=== PATIENT | female | born 1955 | race Two or more races ===

== ENCOUNTER 2024-06-06 15:36 | Inpatient (IN) | payer BC, OTHER ==
[~2024-06-06] VITALS: Ht 154.9 cm; Wt 74.6 kg
[2024-06-06] MEDS: SODIUM CHLORIDE 0.9% 500 ML IVB ONE (15:45)
--- NOTE | 2024-06-06 15:48 | ED.PDOC ---
Altered Mental Status HPI Comments 68 y.o female with medical history of anemia, blood transfusions, and HTN, presents to the ED via EMS for an evaluation of a syncopal episode today at home. Patient reports ambulating to her restroom, was unable to make it and lost consciousness. Construction workers outside her home heard a thump and found patient unconscious in a sitting position by the toilet. EMS reports on arrival, patient was pale, clammy and cold but vital signs were stable with a blood glucose of 117. In route, patient's blood pressure dropped suddenly to 77 systolic and presents to the ED with a repeat pressure of 78/48. Patient also mentions the past 2 days she has had hematemesis and dark stools. She denies any chest pain, SOB, fever, chills. Patient has a history of ETOH abuse but is sober now. Time Seen by MD: 15:36 Reviewed Notes: Nurses Notes, Civil Engineering Intern Notes, Medications, Allergies Allergies: Coded Allergies: NO KNOWN ALLERGIES (Unverified , 06/06/24) Information Source: Patient, Emergency Med Personnel Mode of Arrival: EMS Severity: Moderate Timing: Hours Quality: None Recent: Nausea, Vomiting History of: None Associated Signs and Symptoms: Other Past Medical History PAST MEDICAL HISTORY: Anemia, HTN Past Medical History (Other): Blood transfusion Surgical History: Denies all surgeries CAREER DEVELOPMENT ENGINEER History: Denies all CAREER DEVELOPMENT ENGINEER Hx Family History Family History: Family hx of heart arnulfo Social History Smoker: Non-Smoker Alcohol: Sober Drugs: Denies Drug Use Lives In: Home Constitutional: denies: chills, diaphoresis, fatigue, fever, malaise, sweats, weakness, others EENTM: denies: blurred vision, double vision, ear bleeding, ear discharge, ear drainage, ear pain, ear ringing, eye pain, eye redness, hearing loss, mouth pain, mouth swelling, nasal discharge, nose bleeding, nose congestion, nose pain, photophobia, tearing, throat pain, throat swelling, voice changes, others Respiratory: denies: cough, hemoptysis, orthopnea, SOB at rest, shortness of breath, SOB with excertion, stridor, wheezing, others Cardiovascular: reports: syncope; denies: chest pain, dizzy spells, diaphoresis, Dyspnea on exertion, edema, irregular heart beat, left arm pain, lightheadedness, palpitations, PND, others Gastrointestinal: reports: hematemesis, nausea; denies: abdomen distended, abdominal pain, blood streaked bowels, constipated, diarrhea, dysphagia, difficulty swallowing, melena, poor appetite, poor fluid intake, rectal bleeding, rectal pain, vomiting, others Genitourinary: denies: abnormal vagina bleeding, burning, dyspareunia, dysuria, flank pain, frequency, hematuria, incontinence, pain, , vagina discharge, urgency, others Neurological: denies: dizziness, fainting, headache, left sided numbness, left sided weakness, numbness, paresthesia, pre-existing deficit, right sided numbness, right sided weakness, seizure, speech problems, tingling, tremors, weakness, others Musculoskeletal: denies: back pain, gout, joint pain, joint swelling, muscle pain, muscle stiffness, neck pain, others Integumetry: reports: change in color (pale ); denies: bruises, change in hair/nails, dryness, laceration, lesions, lumps, rash, wounds, others Allergic/Immunocompromised: denies: Difficulty Healing, Frequent Infections, Hives, Itching, others Hematologic/Lymphatic: denies: anemia, blood clots, easy bleeding, easy bruising, swollen glands, others Endocrine: denies: excessive hunger, excessive sweating, excessive thirst, excessive urination, flushing, intolerance to cold, intolerance to heat, unexplained weight gain, unexplained weight loss, others Psychiatric: denies: anxiety, bipolar disorder, depression, hopeless, panic disorder, schizophrenia, sleepless, suicidal, others All Other Systems: Reviewed and Negative Physical Exam General Appearance: Moderate Distress HEENT: Normal ENT Inspection, Pharynx Normal, TMs Normal Neck: Full Range of Motion, Non-Tender, Normal, Normal Inspection Respiratory: Chest Non-Tender, Lungs Clear, No Accessory Muscle Use, No Respiratory Distress, Normal Breath Sounds Cardiovascular: No Edema, No JVD, No Murmur, No Gallop, Tachycardia Breast Exam: Deferred Gastrointestinal: No Organomegaly, Non Tender, No Pulsatile Mass, Normal Bowel Sounds, Soft Genitalia: Deferred Pelvic: Deferred Rectal: Deferred Extremities: No calf tenderness, Normal capillary refill, Normal inspection, Normal range of motion, Non-tender, No pedal edema Musculoskeletal : Apperance: Normal Neurologic: Alert, 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 Was a procedure done?: No Differential Diagnosis (ALOC) Differential Diagnosis: Dehydration, Hypoxemia, Closed Head Injury, ETOH Intoxication, Other (anemia) X-Ray, Labs, Meds, VS Vital Signs Date Time Temp Pulse Resp B/P (MAP) Pulse Ox O2 Delivery O2 Flow Rate FiO2 06/06/24 18:58 97.5 99 12 97.5 06/06/24 18:58 97.5 99 12 97.5 06/06/24 17:59 97.8 93 18 80/46 (57) 96 97.8 06/06/24 17:50 100 06/06/24 16:28 97.5 99 20 82/36 (51) 96 97.5 06/06/24 16:01 99 22 80/43 (55) 98 06/06/24 15:59 Nasal Cannula* 4 36 06/06/24 15:56 97.7 100 22 71/42 (52) 92 06/06/24 15:48 102 06/06/24 15:36 102 Lab Test 06/06/24 16:15 06/06/24 15:59 Range/Units Prothrombin Time 16.1 H 9.3-11.8 sec Prothrombin Time INR 1.59 H 0.9-1.15 Activated Partial Thromboplast Time 29.9 24.5-34.5 SEC White Blood Count 12.7 H 4.4-10.8 10^3/uL Red Blood Count 1.77 L 4.0-5.20 10^6/uL Hemoglobin 6.2 *L 12.2-16.2 g/dL Hematocrit 18.8 L 36.0-46.0 % Mean Corpuscular Volume 105.9 H 80.0-100.0 fL Mean Corpuscular Hemoglobin 34.7 H 28.0-32.0 pg Mean Corpuscular Hemoglobin Concent 32.8 32.0-36.0 g/dL Red Cell Distribution Width 13.3 11.8-14.3 % Platelet Count 145 140-450 10^3/uL Mean Platelet Volume 9.3 6.9-10.8 fL Neutrophils (%) (Auto) 70.2 37.0-80.0 % Lymphocytes (%) (Auto) 19.6 10.0-50.0 % Monocytes (%) (Auto) 10.0 0.0-12.0 % Eosinophils (%) (Auto) 0.0 0.0-7.0 % Basophils (%) (Auto) 0.2 0.0-2.0 % Neutrophils # (Auto) 8.9 H 1.6-8.6 10 ^3/uL Lymphocytes # (Auto) 2.5 0.4-5.4 10 ^3/uL Monocytes # (Auto) 1.3 0-1.3 10 ^3/uL Eosinophils # (Auto) 0 0-0.8 10 ^3/uL Basophils # (Auto) 0 0-0.2 10 ^3/uL Nucleated Red Blood Cells 0.3 % Sodium Level 135 L 136-145 mmol/L Potassium Level 3.4 L 3.5-5.1 mmol/L Chloride Level 98 98-107 mmol/L Carbon Dioxide Level 22 20-31 mmol/L Anion Gap 15 5-15 Blood Urea Nitrogen 62 H 9-23 mg/dL Creatinine 1.69 H 0.550-1.02 mg/dL Glomerular Filtration Rate Calc 32 >90 mL/min BUN/Creatinine Ratio 36.7 H 10.0-20.0 Serum Glucose 100 74-106 mg/dL Calcium Level 9.8 8.7-10.4 mg/dL Total Bilirubin 1.2 H 0.2-1.0 mg/dL Aspartate Amino Transferase (AST) 97 H 13-40 U/L Alanine Aminotransferase (ALT) 46 H 7-40 U/L Alkaline Phosphatase 46 46-116 U/L Total Protein 5.4 L 5.7-8.2 g/dL Albumin 3.1 L 3.2-4.8 g/dL Current Medications Medications (Trade) Dose Ordered Sig/Jose Route Start Time Stop Time Status Last Admin Sodium Chloride 500 ml @ 500 mls/hr Q1H ONCE IVB 06/06/24 15:45 06/06/24 16:44 DC 06/06/24 15:45 Pantoprazole Sodium (Protonix) 40 mg ONCE ONCE IV 06/06/24 16:00 06/06/24 16:01 DC 06/06/24 17:12 IV Hep-Lock was established The patient was bolused with normal saline at a 500 cc bolus We immediately contacted the resort housekeeper. We spoke with Dr. Flower who is aware of the patient. The patient was being given Protonix 40 mg IV push The patient remains hypotensive and with a history of bleeding, we did order emergency blood to be given at this time The patient was still also typed and screened We will continue to monitor the patient for the hypotension as well as the GI bleed We are going to give the patient thiamine IV piggyback At this time, the patient was being admitted Images Reviewed?: Images reviewed and evaluated by me Time of 1ST Reevaluation: 15:42 Reevaluation 1ST: Unchanged Patient Education/Counseling: Diagnosis, Treatment, Prognosis Family Education/Counseling: No Family Present Departure 1 Departure Time of Disposition: 18:48 Impression: Primary Impression: Upper GI bleed Additional Impressions: Blood loss anemia Hypotension Qualified Codes: I95.9 - Hypotension, unspecified Alcohol abuse Disposition: ADMITTED INPATIENT Admit to: ICU Condition: Guarded Critical Care Note Critical Care Time?: Yes (45 min-critical care time only) Stability Stability form required: Yes Unstable for transfer: ICU, CCU, PCU, MIKHAIL (Intensive VS monitoring), ED Physician Assesment (Clinical assesment) I personally scribed for MAYA YANEZ MD ([email or web address]) on 06/06/24 at 15:47. Electronically submitted by Lubna Davenport ([facility]). I personally scribed for MAYA YANEZ MD ([email or web address]) on 06/06/24 at 15:48. Electronically submitted by Lubna Davenport ([facility]). MAYA YANEZ MD Jun 06, 2024 15:47
[2024-06-06 16:20] LABS: Basophils # (auto) 0 10 ^3/uL (0-0.2); Basophils % (auto) 0.2 % (0.0-2.0); Eosinophils # (auto) 0 10 ^3/uL (0-0.8); Lymphocytes # (auto) 2.5 10 ^3/uL (0.4-5.4)
[2024-06-06 16:23] LABS: Hematocrit 18.8 % (36.0-46.0); Lymphocytes % (auto) 19.6 % (10.0-50.0); Mean Corpuscular Hemoglobin 34.7 pg (28.0-32.0); Mean Corpuscular Hgb Conc. 32.8 g/dL (32.0-36.0); Mean Corpuscular Volume 105.9 fL (80.0-100.0); Monocytes # (auto) 1.3 10 ^3/uL (0-1.3); Neutrophils # (auto) 8.9 10 ^3/uL (1.6-8.6); Neutrophils % (auto) 70.2 % (37.0-80.0); Nucleated Red Blood Cells % 0.3 %; Platelet Count (auto) 145 10^3/uL (140-450); Red Blood Cells 1.77 10^6/uL (4.0-5.20); Red Cell Distribution Width 13.3 % (11.8-14.3); White Blood Cell 12.7 10^3/uL (4.4-10.8)
[2024-06-06 16:36] LABS: Hemoglobin 6.2 g/dL (12.2-16.2)
[2024-06-06 16:39] LABS: Alkaline Phosphatase 46 U/L (46-116); Anion Gap 15 (5-15); BUN/Creatinine Ratio 36.7 (10.0-20.0); Bilirubin, Total 1.2 mg/dL (0.2-1.0); Calcium 9.8 mg/dL (8.7-10.4); Carbon Dioxide 22 mmol/L (20-31); Chloride 98 mmol/L (98-107); Glucose 100 mg/dL (74-106)
[2024-06-06 16:42] LABS: Alanine Aminotransferase 46 U/L (7-40); Albumin 3.1 g/dL (3.2-4.8); Aspartate Aminotransferase 97 U/L (13-40); Blood Urea Nitrogen 62 mg/dL (9-23); Potassium 3.4 mmol/L (3.5-5.1); Sodium 135 mmol/L (136-145); Total Protein 5.4 g/dL (5.7-8.2)
[2024-06-06] MEDS: PANTOPRAZOLE 40 MG/10 ML VIAL INJ IV ONE (17:12)
[2024-06-06 17:14] LABS: INR 1.59 (0.9-1.15); Partial Thromboplastin Time 29.9 SEC (24.5-34.5); Prothrombin Time 16.1 sec (9.3-11.8)
[2024-06-06 18:58] VITALS: BP 74/31; PULSE 99; RESP 12; TEMP 97.5
--- NOTE | 2024-06-06 19:04 | DVH ---
Exam: CT CT AB PEL WO CON-NO ORAL OR IV History: PAIN AND WEAKNESS Comparison Study: None available at time of dictation. TECHNIQUE: Multidetector CT of the abdomen and pelvis without contour. Axial, coronal and sagittal mu ltiplanar reformats were obtained from the axial data set by the technologist. Radiation Dose Information: CT Dose: CTDI volume is 8.09 mGy. Dose-length product is 401.75 mGy*cm FINDINGS: Bibasilar atelectasis. Partially visualized heart is normal in size. Trace pericardial effusion. Cirrhotic appearing liver with hepatic steatosis, micronodular contour of the liver, recanalization o f the umbilical vein and gastroesophageal varices. Spleen, pancreas and left adrenal gland unremarkab le. 1.6 cm right adrenal nodule. Cholelithiasis with no CT evidence of acute cholecystitis. 1.3 cm and 2.3 cm left renal cysts with 2 cm right renal lower pole cyst. No hydronephrosis bilateral ly. The urinary bladder is unremarkable. Uterus and adnexa unremarkable. Fluid-filled mildly distended distal esophagus. Ingested material fluid-filled mildly distended stoma ch. The small bowel loops unremarkable. Appendix is unremarkable. Moderate amount of fecal material w ithin the colon. Descending colon and sigmoid diverticulosis without diverticulitis. No evidence of intraperitoneal free air or free fluid. Mild mesenteric edema which may be from the ci rrhosis. No evidence of aortic aneurysm. No significant lymphadenopathy. Small fat containing right inguinal hernia. The soft tissues unremarkable. Moderate degenerative pagan ges bilateral hips. No destructive osseous lesions are noted. IMPRESSION: No evidence of acute abdominopelvic abnormalities. Cirrhotic appearing liver. Moderate amount of fecal material within the colon. Fluid-filled mildly distended distal esophagus. Bilateral renal cysts. Cholelithiasis without evidence for acute cholecystitis. 1.6 cm right adrenal nodule. Adrenal protocol CT / MRI should be considered for further evaluation.
[2024-06-06 19:13] VITALS: BP 72/37; PULSE 97; RESP 14; TEMP 97.8
--- NOTE | 2024-06-06 19:18 | DVHINCON2 ---
Date of service: Jun 06, [address] Kang Reason for Consultation GI bleed anemia History of Present Illness This 68-year-old female with a history of anemia hypertension presented to the emergency room with syncopal episode she apparently lost her consciousness while ambulating to the restroom and she was found to be unconscious by construction or leak gang laborer outside and was brought to the ER. By the EMS she had a low blood pressure of 77 apparently she has been having hematemesis and melena for the last few days Patient has history of moderate ethanol abuse. Past Medical History History of anemia and GI bleeding requiring transfusions in the past Past Surgical History None Family History Noncontributory Social History History of moderate drinking Allergies: Coded Allergies: NO KNOWN ALLERGIES (Unverified , 06/06/24) Review of Systems Noncontributory Vital Signs Vital Signs Date Time Temp Pulse Resp B/P (MAP) Pulse Ox O2 Delivery O2 Flow Rate FiO2 06/06/24 18:58 97.5 99 12 74/31 97.5 06/06/24 17:59 96 06/06/24 15:59 Nasal Cannula* 4 36 Physical Exam Moderately built and nourished female in no acute distress looked pale Vital showed the blood pressure to be low and she is on medications to get the blood pressure up ENT examination mild pallor Lungs clear Cardiovascular unremarkable Abdomen soft no distention no rigidity no guarding no masses Liver edge felt maybe 15 cm Neuro possibility of early asterixis early withdrawal can not be excluded Labs/Diagnostic Data Labs Test 06/06/24 16:15 06/06/24 15:59 Range/Units Prothrombin Time 16.1 H 9.3-11.8 sec Prothrombin Time INR 1.59 H 0.9-1.15 Activated Partial Thromboplast Time 29.9 24.5-34.5 SEC White Blood Count 12.7 H 4.4-10.8 10^3/uL Red Blood Count 1.77 L 4.0-5.20 10^6/uL Hemoglobin 6.2 *L 12.2-16.2 g/dL Hematocrit 18.8 L 36.0-46.0 % Mean Corpuscular Volume 105.9 H 80.0-100.0 fL Mean Corpuscular Hemoglobin 34.7 H 28.0-32.0 pg Mean Corpuscular Hemoglobin Concent 32.8 32.0-36.0 g/dL Red Cell Distribution Width 13.3 11.8-14.3 % Platelet Count 145 140-450 10^3/uL Mean Platelet Volume 9.3 6.9-10.8 fL Neutrophils (%) (Auto) 70.2 37.0-80.0 % Lymphocytes (%) (Auto) 19.6 10.0-50.0 % Monocytes (%) (Auto) 10.0 0.0-12.0 % Eosinophils (%) (Auto) 0.0 0.0-7.0 % Basophils (%) (Auto) 0.2 0.0-2.0 % Neutrophils # (Auto) 8.9 H 1.6-8.6 10 ^3/uL Lymphocytes # (Auto) 2.5 0.4-5.4 10 ^3/uL Monocytes # (Auto) 1.3 0-1.3 10 ^3/uL Eosinophils # (Auto) 0 0-0.8 10 ^3/uL Basophils # (Auto) 0 0-0.2 10 ^3/uL Nucleated Red Blood Cells 0.3 % Sodium Level 135 L 136-145 mmol/L Potassium Level 3.4 L 3.5-5.1 mmol/L Chloride Level 98 98-107 mmol/L Carbon Dioxide Level 22 20-31 mmol/L Anion Gap 15 5-15 Blood Urea Nitrogen 62 H 9-23 mg/dL Creatinine 1.69 H 0.550-1.02 mg/dL Glomerular Filtration Rate Calc 32 >90 mL/min BUN/Creatinine Ratio 36.7 H 10.0-20.0 Serum Glucose 100 74-106 mg/dL Calcium Level 9.8 8.7-10.4 mg/dL Total Bilirubin 1.2 H 0.2-1.0 mg/dL Aspartate Amino Transferase (AST) 97 H 13-40 U/L Alanine Aminotransferase (ALT) 46 H 7-40 U/L Alkaline Phosphatase 46 46-116 U/L Total Protein 5.4 L 5.7-8.2 g/dL Albumin 3.1 L 3.2-4.8 g/dL Assessment 68-year-old female with a history anemia blood transfusions hypertension now p resenting with syncopal episode has phase found to be very anemic had hematemesis and melena for the last few days history of moderate to heavy ethanol abuse in the past apparently sober now physical examination duration is having low blood pressure and is getting maintained on pressor support Clinical impression Possible end stage liver disease with variceal bleeding with anemia and hypotension Possible variceal bleeding Possible delirium tremens and alcohol withdrawal versus encephalopathy Plan/Recommendation Ammonia level Treat with Sandostatin as well as Protonix Follow hemoglobin and crit Pressure support to keep the blood pressure Is significant bleeding may need emergency angiogram or EGD evaluation For the time now we will try to stabilize and do an elective EGD evaluation when stable Her overall prognosis is guarded with the end-stage liver disease Thank you Dr. Mundo Bruce discussed with: Patient AMY LOCKHART MD Jun 06, 2024 19:18
[2024-06-06] MEDS ORDERED: HYDROmorphone HCL 2 MG/ML VL/or syr IV PRN (20:15)
[2024-06-06] MEDS ORDERED: ACETAMINOPHEN 325 MG TAB PO PRN (20:15)
[2024-06-06] MEDS ORDERED: DOCUSATE SOD 100 MG CAP PO PRN (20:15)
[2024-06-06] MEDS ORDERED: ONDANSETRON HCL 4 MG/2 ML VIAL IV PRN (20:15)
--- NOTE | 2024-06-06 20:20 | DVHHP2 ---
Admitting Diagnosis: GI bleed History of Present Illness 68 y.o female with medical history of anemia, blood transfusions, and HTN, presents to the ED via EMS for an evaluation of a syncopal episode today at home. Patient reports ambulating to her restroom, was unable to make it and lost consciousness. Construction workers outside her home heard a thump and found patient unconscious in a sitting position by the toilet. EMS reports on arrival, patient was pale, clammy and cold but vital signs were stable with a blood glucose of 117. In route, patient's blood pressure dropped suddenly to 77 s ystolic and presents to the ED with a repeat pressure of 78/48. Patient also mentions the past 2 days she has had hematemesis and dark stools. She denies any chest pain, SOB, fever, chills. Patient has a history of ETOH abuse but is sober now. PAST MEDICAL HISTORY: Anemia, HTN Past Medical History (Other): Blood transfusion Surgical History: Denies all surgeries LABORER HOISTING History: Denies all LABORER HOISTING Hx Family History Family History: Family hx of heart arnulfo Social History Smoker: Non-Smoker Alcohol: Sober Drugs: Denies Drug Use Lives In: Home Allergies: Coded Allergies: NO KNOWN ALLERGIES (Unverified , 06/06/24) Current Medications Current Medications Medications (Trade) Dose Ordered Sig/Jose Route PRN Reason Start Time Stop Time Status Last Admin Norepinephrine Bitartrate 250 ml @ 3.75 mls/hr Q24H IV 06/06/24 20:15 Vital Signs Vital Signs Date Time Temp Pulse Resp B/P (MAP) Pulse Ox O2 Delivery O2 Flow Rate FiO2 06/06/24 19:13 97.8 97 14 72/37 97.8 06/06/24 19:13 97 06/06/24 15:59 Nasal Cannula* 4 36 Physical Exam General-68 years old woman, well nourished well developed. No apparent distress HEENT-atraumatic normocephalic Heart-regular rate and rhythm Lungs clear to auscultate Abdomen soft, nontender nondistended Musculoskeletal-pedal edema no cyanosis Neuro-awake alert in the, resting comfortably in bed mild confusion. Follow commands Results Labs Test 06/06/24 16:15 06/06/24 15:59 Range/Units Prothrombin Time 16.1 H 9.3-11.8 sec Prothrombin Time INR 1.59 H 0.9-1.15 Activated Partial Thromboplast Time 29.9 24.5-34.5 SEC White Blood Count 12.7 H 4.4-10.8 10^3/uL Red Blood Count 1.77 L 4.0-5.20 10^6/uL Hemoglobin 6.2 *L 12.2-16.2 g/dL Hematocrit 18.8 L 36.0-46.0 % Mean Corpuscular Volume 105.9 H 80.0-100.0 fL Mean Corpuscular Hemoglobin 34.7 H 28.0-32.0 pg Mean Corpuscular Hemoglobin Concent 32.8 32.0-36.0 g/dL Red Cell Distribution Width 13.3 11.8-14.3 % Platelet Count 145 140-450 10^3/uL Mean Platelet Volume 9.3 6.9-10.8 fL Neutrophils (%) (Auto) 70.2 37.0-80.0 % Lymphocytes (%) (Auto) 19.6 10.0-50.0 % Monocytes (%) (Auto) 10.0 0.0-12.0 % Eosinophils (%) (Auto) 0.0 0.0-7.0 % Basophils (%) (Auto) 0.2 0.0-2.0 % Neutrophils # (Auto) 8.9 H 1.6-8.6 10 ^3/uL Lymphocytes # (Auto) 2.5 0.4-5.4 10 ^3/uL Monocytes # (Auto) 1.3 0-1.3 10 ^3/uL Eosinophils # (Auto) 0 0-0.8 10 ^3/uL Basophils # (Auto) 0 0-0.2 10 ^3/uL Nucleated Red Blood Cells 0.3 % Sodium Level 135 L 136-145 mmol/L Potassium Level 3.4 L 3.5-5.1 mmol/L Chloride Level 98 98-107 mmol/L Carbon Dioxide Level 22 20-31 mmol/L Anion Gap 15 5-15 Blood Urea Nitrogen 62 H 9-23 mg/dL Creatinine 1.69 H 0.550-1.02 mg/dL Glomerular Filtration Rate Calc 32 >90 mL/min BUN/Creatinine Ratio 36.7 H 10.0-20.0 Serum Glucose 100 74-106 mg/dL Calcium Level 9.8 8.7-10.4 mg/dL Total Bilirubin 1.2 H 0.2-1.0 mg/dL Aspartate Amino Transferase (AST) 97 H 13-40 U/L Alanine Aminotransferase (ALT) 46 H 7-40 U/L Alkaline Phosphatase 46 46-116 U/L Total Protein 5.4 L 5.7-8.2 g/dL Albumin 3.1 L 3.2-4.8 g/dL Primary Diagnosis Acute severe anemia due to upper GI bleed Melena Supratherapeutic INR Liver cirrhosis STEFANIA Hypovolemic shock due to acute blood loss Plan Post 2 unit PRBC GI consult Protonix drip Octreotide drip Hemoglobin goal greater than seven CBC q.8 hours Failed fluid resuscitation Start Levophed for pressor support. Map goal greater than 65 With vitamin K 10 mg for INR greater than 1.6 Check ammonia level admit to icu Full code PPI SCD for DVT prophylaxis NPO except meds Plan discussed with: Patient Problems List: (1) Upper GI bleed Status: Acute (2) Hypotension Status: Acute (3) Blood loss anemia Status: Acute (4) Alcohol abuse Status: Acute Date of Service: Jun 06, 2024 Billing Provider: CHRISTIAN OCONNOR MD Common Visit Codes: 64628-[id number] CARE 30-74 MIN, 84806-DZMIMIIC CARE-EACH +30MIN CHRISTIAN OCONNOR MD Jun 06, 2024 20:20
[2024-06-06] MEDS: NOREPINEPHRINE 8 MG/250ML KIT 250 ML IV SCH (20:21)
[2024-06-06 21:11] VITALS: BP 82/41; PULSE 95; RESP 22; TEMP 98.6
[2024-06-06] MEDS: OCTREOTIDE ACETATE 500 MCG in SODIUM CHL 0.9% 99 ML IV SCH (21:14)
[2024-06-06] MEDS: phytonadione 10 MG in SODIUM CHL 0.9% 50 ML IV ONE (21:30)
[2024-06-06 21:35] LABS: Urine Bacteria FEW /hpf (None Seen); Urine Blood 2+ /uL (Negative); Urine Clarity Turbid (Clear); Urine Color Light-Orange (Yellow); Urine Protein, UAD Negative (Negative); Urine Specific Gravity 1.022 (1.001-1.035); Urine Squamous Epithelial Cell FEW /hpf (<5); Urine Urobilinogen Normal (Negative); Urine WBC 2 /HPF (0-5); Urine pH 5.5 (5.0-9.0)
[2024-06-06] MEDS: PANTOPRAZOLE 40mg/50ML NS AE 50 ML IV ONE (21:59)
[2024-06-06] MEDS: SODIUM CHLOR 0.9% PF (SALINE LOCK) 10ML VIAL/SYR IV SCH (22:00)
[2024-06-06 23:18] LABS: Basophils # (auto) 0 10 ^3/uL (0-0.2); Basophils % (auto) 0.1 % (0.0-2.0); Eosinophils # (auto) 0 10 ^3/uL (0-0.8); Hematocrit 25.8 % (36.0-46.0); Hemoglobin 8.7 g/dL (12.2-16.2); Lymphocytes # (auto) 2.4 10 ^3/uL (0.4-5.4); Lymphocytes % (auto) 14.8 % (10.0-50.0); Mean Corpuscular Hemoglobin 33.2 pg (28.0-32.0); Mean Corpuscular Hgb Conc. 33.6 g/dL (32.0-36.0); Mean Corpuscular Volume 98.7 fL (80.0-100.0); Monocytes # (auto) 1.7 10 ^3/uL (0-1.3); Monocytes % (auto) 10.3 % (0.0-12.0); Neutrophils # (auto) 12.3 10 ^3/uL (1.6-8.6); Neutrophils % (auto) 74.8 % (37.0-80.0); Nucleated Red Blood Cells % 0.3 %; Platelet Count (auto) 119 10^3/uL (140-450); Red Blood Cells 2.61 10^6/uL (4.0-5.20); Red Cell Distribution Width 14.7 % (11.8-14.3); White Blood Cell 16.4 10^3/uL (4.4-10.8)
[2024-06-06 23:36] LABS: Alanine Aminotransferase 51 U/L (7-40); Albumin 2.9 g/dL (3.2-4.8); Alkaline Phosphatase 44 U/L (46-116); Anion Gap 11 (5-15); Aspartate Aminotransferase 130 U/L (13-40); BUN/Creatinine Ratio 57.4 (10.0-20.0); Bilirubin, Total 1.8 mg/dL (0.2-1.0); Blood Urea Nitrogen 66 mg/dL (9-23); Calcium 9.4 mg/dL (8.7-10.4); Carbon Dioxide 21 mmol/L (20-31); Chloride 103 mmol/L (98-107); Glucose 116 mg/dL (74-106); Potassium 3.6 mmol/L (3.5-5.1); Sodium 135 mmol/L (136-145); Total Protein 5.1 g/dL (5.7-8.2)
[2024-06-07] VITALS (27 sets, daily range): BP systolic 92–124; BP diastolic 57–79; PULSE 84–124; RESP 12–23; TEMP 98.6–99.5; O2SAT 87–100
[2024-06-07 03:27] LABS: Basophils # (auto) 0.1 10 ^3/uL (0-0.2); Basophils % (auto) 0.3 % (0.0-2.0); Eosinophils # (auto) 0 10 ^3/uL (0-0.8); Eosinophils % (auto) 0.1 % (0.0-7.0); Hematocrit 26.7 % (36.0-46.0); Hemoglobin 9.2 g/dL (12.2-16.2); Lymphocytes # (auto) 2.7 10 ^3/uL (0.4-5.4); Lymphocytes % (auto) 14.3 % (10.0-50.0); Mean Corpuscular Hemoglobin 33.9 pg (28.0-32.0); Mean Corpuscular Hgb Conc. 34.5 g/dL (32.0-36.0); Mean Corpuscular Volume 98.4 fL (80.0-100.0); Monocytes % (auto) 10.6 % (0.0-12.0); Neutrophils # (auto) 13.9 10 ^3/uL (1.6-8.6); Neutrophils % (auto) 74.7 % (37.0-80.0); Nucleated Red Blood Cells % 0.5 %; Platelet Count (auto) 152 10^3/uL (140-450); Red Blood Cells 2.71 10^6/uL (4.0-5.20); Red Cell Distribution Width 15.3 % (11.8-14.3); White Blood Cell 18.5 10^3/uL (4.4-10.8)
[2024-06-07 03:50] LABS: Chloride 104 mmol/L (98-107); Potassium 3.6 mmol/L (3.5-5.1)
[2024-06-07 03:51] LABS: Anion Gap 12 (5-15)
[2024-06-07 03:52] LABS: Calcium 9.7 mg/dL (8.7-10.4)
[2024-06-07 03:56] LABS: BUN/Creatinine Ratio 52.7 (10.0-20.0)
[2024-06-07 03:57] LABS: Blood Urea Nitrogen 59 mg/dL (9-23); Carbon Dioxide 20 mmol/L (20-31); Glucose 126 mg/dL (74-106); INR 1.34 (0.9-1.15); Prothrombin Time 13.8 sec (9.3-11.8); Sodium 136 mmol/L (136-145)
[2024-06-07] MEDS: OCTREOTIDE ACETATE 100 MCG/ML VL ONE (05:16)
--- NOTE | 2024-06-07 08:53 | DVH ---
EXAM: XR Chest, 1 View CLINICAL INDICATION: PRE PROCEDURE TECHNIQUE: Frontal view of the chest. COMPARISON: None FINDINGS: LUNGS AND PLEURAL SPACES: Unremarkable. No consolidation. No pneumothorax. HEART: Unremarkable. No cardiomegaly. MEDIASTINUM: Unremarkable. Normal mediastinal contour. BONES/JOINTS: Unremarkable. No acute fracture. OTHER FINDINGS: . None. . IMPRESSION: No acute cardiopulmonary process.
--- NOTE | 2024-06-07 09:02 | DVHINCON2 ---
Date of service: Jun 07, 2024 Referring Physician Hospitalist Reason for Consultation STEFANIA History of Present Illness 68-year-old female patient has a history of binge alcohol drinking she denies any other medical conditions. She reports her last drink was on Sunday. She presents to the hospital after loss of consciousness was found near a public bathroom unconscious She was brought to the hospital for this reason. Nephrology is consulted due to elevated creatinine level. She reports a previous history of coughing up blood she currently has not evaluation by Gastroenterology for anemia. At bedside in the ER patient was on Levophed and octreotide Past Surgical History Cataract Allergies: Coded Allergies: NO KNOWN ALLERGIES (Unverified , 06/06/24) Current Medications Current Medications Medications (Trade) Dose Ordered Sig/Jose Route PRN Reason Start Time Stop Time Status Last Admin Norepinephrine Bitartrate 250 ml @ 3.75 mls/hr Q24H IV 06/06/24 20:15 06/07/24 07:46 Sodium Chloride (Saline Lock Ns) 10 ml Q8HR IV 06/06/24 22:00 06/07/24 05:59 Docusate Sodium (Colace Capsule) 100 mg BIDPRN PRN PO FOR CONSTIPATION 06/06/24 20:15 Acetaminophen (Tylenol Tablet) 650 mg Q6HP PRN PO PAIN SCALE 1-3 OR TEMP>100.4 06/06/24 20:15 Hydromorphone HCl (Dilaudid Injection) 0.5 mg Q4HP PRN IV SEVERE PAIN (7-10 PAIN SCALE) 06/06/24 20:15 Ondansetron HCl (Zofran) 4 mg Q4HP PRN IV NAUSEA / VOMITING 06/06/24 20:15 Octreotide Acetate 500 mcg/ Sodium Chloride 100 ml @ 10 mls/hr Q10H IV 06/06/24 20:15 06/07/24 06:06 Sodium Chloride 1,000 ml @ 60 mls/hr [id number] IV 06/07/24 09:00 06/07/24 09:46 Review of Systems Loss of consciousness H&P Exam Vital Signs/I&O Vital Sign Date Time Temp Pulse Resp B/P (MAP) Pulse Ox O2 Delivery O2 Flow Rate FiO2 06/07/24 09:46 98.5 105 12 105/50 (68) 100 98.5 06/07/24 03:30 Nasal Cannula* 2 28 Intake and Output 06/06/24 06/07/24 19:00 07:00 Intake Total 1100 ml 781 ml Output Total 0 ml 150 ml Balance 1100 ml 631 ml Intake Oral 0 ml 0 ml IV Total 500 ml 181 ml Blood Product 600 ml 600 ml Other 0 ml 0 ml Output Urine Total 0 ml 150 ml Physical Exam Mildly guarded female Not in overt distress Slightly anxious Sinus tachycardia Abdomen is soft No pitting edema Labs/Diagnostic Data Labs/Diagnostic Data Laboratory Tests Test 06/07/24 08:49 06/07/24 03:05 06/06/24 22:55 06/06/24 20:41 Range/Units Hemoglobin 8.9 L 9.2 L 8.7 #L 12.2-16.2 g/dL White Blood Count 18.5 H 16.4 #H 4.4-10.8 10^3/uL Red Blood Count 2.71 L 2.61 L 4.0-5.20 10^6/uL Hematocrit 26.7 L 25.8 #L 36.0-46.0 % Mean Corpuscular Volume 98.4 98.7 # 80.0-100.0 fL Mean Corpuscular Hemoglobin 33.9 H 33.2 H 28.0-32.0 pg Mean Corpuscular Hemoglobin Concent 34.5 33.6 32.0-36.0 g/dL Red Cell Distribution Width 15.3 H 14.7 H 11.8-14.3 % Platelet Count 152 119 L 140-450 10^3/uL Mean Platelet Volume 8.8 9.1 6.9-10.8 fL Neutrophils (%) (Auto) 74.7 74.8 37.0-80.0 % Lymphocytes (%) (Auto) 14.3 14.8 10.0-50.0 % Monocytes (%) (Auto) 10.6 10.3 0.0-12.0 % Eosinophils (%) (Auto) 0.1 0.0 0.0-7.0 % Basophils (%) (Auto) 0.3 0.1 0.0-2.0 % Neutrophils # (Auto) 13.9 H 12.3 H 1.6-8.6 10 ^3/uL Lymphocytes # (Auto) 2.7 2.4 0.4-5.4 10 ^3/uL Monocytes # (Auto) 2.0 H 1.7 H 0-1.3 10 ^3/uL Eosinophils # (Auto) 0 0 0-0.8 10 ^3/uL Basophils # (Auto) 0.1 0 0-0.2 10 ^3/uL Nucleated Red Blood Cells 0.5 0.3 % Prothrombin Time 13.8 H 9.3-11.8 sec Prothrombin Time INR 1.34 H 0.9-1.15 Sodium Level 136 135 L 136-145 mmol/L Potassium Level 3.6 3.6 3.5-5.1 mmol/L Chloride Level 104 103 98-107 mmol/L Carbon Dioxide Level 20 21 20-31 mmol/L Anion Gap 12 11 5-15 Blood Urea Nitrogen 59 H 66 H 9-23 mg/dL Creatinine 1.12 H 1.15 #H 0.550-1.02 mg/dL Glomerular Filtration Rate Calc 53 52 >90 mL/min BUN/Creatinine Ratio 52.7 H 57.4 H 10.0-20.0 Serum Glucose 126 H 116 H 74-106 mg/dL Calcium Level 9.7 9.4 8.7-10.4 mg/dL Plasma/Serum Blood Alcohol < 3.0 <10 mg/dL Total Bilirubin 1.8 H 0.2-1.0 mg/dL Aspartate Amino Transferase (AST) 130 H 13-40 U/L Alanine Aminotransferase (ALT) 51 H 7-40 U/L Alkaline Phosphatase 44 L 46-116 U/L Ammonia 47 H 11-32 umol/L Total Protein 5.1 L 5.7-8.2 g/dL Albumin 2.9 L 3.2-4.8 g/dL Urine Color Light-orange Yellow Urine Clarity Turbid H Clear Urine pH 5.5 5.0-9.0 Urine Specific [place] 1.022 1.001-1.035 Urine Protein Negative Negative Urine Ketones 1+ H Negative Urine Blood 2+ H Negative /uL Urine Nitrite Negative Negative Urine Bilirubin Negative Negative Urine Urobilinogen Normal Negative mg/dL Urine Leukocyte Esterase 3+ Negative /uL Urine RBC <1 0 - 4 /hpf Urine Microscopic WBC 2 0-5 /HPF Urine Squamous Epithelial Cells Few <5 /hpf Urine Bacteria Few H None Seen /hpf Urine Glucose Normal Normal mg/dL Test 06/06/24 16:15 06/06/24 15:59 Range/Units Prothrombin Time 16.1 H 9.3-11.8 sec Prothrombin Time INR 1.59 H 0.9-1.15 Activated Partial Thromboplast Time 29.9 24.5-34.5 SEC White Blood Count 12.7 H 4.4-10.8 10^3/uL Red Blood Count 1.77 L 4.0-5.20 10^6/uL Hemoglobin 6.2 *L 12.2-16.2 g/dL Hematocrit 18.8 L 36.0-46.0 % Mean Corpuscular Volume 105.9 H 80.0-100.0 fL Mean Corpuscular Hemoglobin 34.7 H 28.0-32.0 pg Mean Corpuscular Hemoglobin Concent 32.8 32.0-36.0 g/dL Red Cell Distribution Width 13.3 11.8-14.3 % Platelet Count 145 140-450 10^3/uL Mean Platelet Volume 9.3 6.9-10.8 fL Neutrophils (%) (Auto) 70.2 37.0-80.0 % Lymphocytes (%) (Auto) 19.6 10.0-50.0 % Monocytes (%) (Auto) 10.0 0.0-12.0 % Eosinophils (%) (Auto) 0.0 0.0-7.0 % Basophils (%) (Auto) 0.2 0.0-2.0 % Neutrophils # (Auto) 8.9 H 1.6-8.6 10 ^3/uL Lymphocytes # (Auto) 2.5 0.4-5.4 10 ^3/uL Monocytes # (Auto) 1.3 0-1.3 10 ^3/uL Eosinophils # (Auto) 0 0-0.8 10 ^3/uL Basophils # (Auto) 0 0-0.2 10 ^3/uL Nucleated Red Blood Cells 0.3 % Sodium Level 135 L 136-145 mmol/L Potassium Level 3.4 L 3.5-5.1 mmol/L Chloride Level 98 98-107 mmol/L Carbon Dioxide Level 22 20-31 mmol/L Anion Gap 15 5-15 Blood Urea Nitrogen 62 H 9-23 mg/dL Creatinine 1.69 H 0.550-1.02 mg/dL Glomerular Filtration Rate Calc 32 >90 mL/min BUN/Creatinine Ratio 36.7 H 10.0-20.0 Serum Glucose 100 74-106 mg/dL Calcium Level 9.8 8.7-10.4 mg/dL Total Bilirubin 1.2 H 0.2-1.0 mg/dL Aspartate Amino Transferase (AST) 97 H 13-40 U/L Alanine Aminotransferase (ALT) 46 H 7-40 U/L Alkaline Phosphatase 46 46-116 U/L Total Protein 5.4 L 5.7-8.2 g/dL Albumin 3.1 L 3.2-4.8 g/dL Assessment Acute kidney injury suspect prerenal in setting of hypotension and syncope LOC anemia cirrhosis; high AST suggestive of etoh liver disease leukocytosis Send drug screening supportive care for BP IVF, albumin PRN if needed avoid MAP less than 65 urine studies currently on octreotide Per nurse at bedside patient is pending endoscopy today by Gastroenterology urine studies rule out infection as cause of high WBC Currently has no obvious signs of alcohol withdrawal recommend continue daily monitoring Plan discussed with: Patient SHAMA MADISON MD Jun 07, 2024 09:02
[2024-06-07] MEDS: SODIUM CHLORIDE 0.9% 1,000 ML IV SCH (09:46)
--- NOTE | 2024-06-07 13:17 | DVHPN2 ---
Progress Note - Dictate Date Seen: Jun 07, 2024 Medical Necessity Reason Pt with a Central, PICC or Fol: No Subjective Feeling much better more alert less pale had 2 units of packed cells yesterday getting one more today No gross bleeding in the NG old blood in the NG tube Still on low-dose vasopressors vital signs Vital Sign Date Time Temp Pulse Resp B/P (MAP) Pulse Ox O2 Delivery O2 Flow Rate FiO2 06/07/24 12:00 98.2 103 19 103/55 (71) 99 98.2 06/07/24 03:30 Nasal Cannula* 2 28 Total Intake and Output 06/06/24 06/06/24 06/07/24 15:00 23:00 07:00 Intake Total 1771 ml 110 ml Output Total 0 ml 150 ml Balance 1771 ml -40 ml medications Current Medications Medications Dose Ordered Sig/Jose Route Start Time Stop Time Status Last Admin Dose Admin Norepinephrine Bitartrate 250 ml @ 3.75 mls/hr Q24H IV 06/06/24 20:15 06/07/24 07:46 52.5 MLS/HR Sodium Chloride 10 ml Q8HR IV 06/06/24 22:00 06/07/24 05:59 10 ML Docusate Sodium 100 mg BIDPRN PRN PO 06/06/24 20:15 Acetaminophen 650 mg Q6HP PRN PO 06/06/24 20:15 Hydromorphone HCl 0.5 mg Q4HP PRN IV 06/06/24 20:15 Ondansetron HCl 4 mg Q4HP PRN IV 06/06/24 20:15 Octreotide Acetate 500 mcg/ Sodium Chloride 100 ml @ 10 mls/hr Q10H IV 06/06/24 20:15 06/07/24 06:06 10 MLS/HR Sodium Chloride 1,000 ml @ 60 mls/hr [id number] IV 06/07/24 09:00 06/07/24 09:46 60 MLS/HR objective Abdomen soft nontender Vitals better blood pressure better on low-dose vasopressors laboratory and microbiology Laboratory Tests 06/07/24 08:49 06/07/24 03:05 Test 06/07/24 03:05 Range/Units Serum Glucose 126 H 74-106 mg/dL Assessment/Plan 68 year old female with chronic liver disease and GI bleeding had some black stools tarry stools vitals are better now hemoglobin is still little low but getting one more unit no gross bleeding at this time and give vitals are better with the pressor support patient is more alert and more stable Etiology of the bleeding Possible esophageal varices or other pathology We will recommend upper GI evaluation with EGD Since patient is better now we will recommend to get it done today Has arrange for the same and we will do it as soon as OR is available Thank you Dr. Flower Plan discussed with: Patient CC Plasma Assessment Blood Product Administration S: [id number] AMY FLOWER MD Jun 07, 2024 13:17
[2024-06-07 14:26] LABS: Basophils # (auto) 0 10 ^3/uL (0-0.2); Basophils % (auto) 0.2 % (0.0-2.0); Eosinophils # (auto) 0 10 ^3/uL (0-0.8); Eosinophils % (auto) 0.2 % (0.0-7.0); Hematocrit 26.8 % (36.0-46.0); Lymphocytes # (auto) 3.5 10 ^3/uL (0.4-5.4); Lymphocytes % (auto) 19.1 % (10.0-50.0); Mean Corpuscular Hemoglobin 33.4 pg (28.0-32.0); Mean Corpuscular Hgb Conc. 33.5 g/dL (32.0-36.0); Mean Corpuscular Volume 99.4 fL (80.0-100.0); Neutrophils # (auto) 12.9 10 ^3/uL (1.6-8.6); Neutrophils % (auto) 69.5 % (37.0-80.0); Nucleated Red Blood Cells % 0.4 %; Platelet Count (auto) 167 10^3/uL (140-450); Red Cell Distribution Width 15.1 % (11.8-14.3); White Blood Cell 18.5 10^3/uL (4.4-10.8)
[2024-06-07] MEDS ORDERED: MIDAZOLAM HCL 2MG/2ML 2ml VIAL (1mg/ml) ONE (15:13)
[2024-06-07] MEDS ORDERED: PROPOFOL 10 MG/ML 20 ML IV ONE (15:13)
[2024-06-07] MEDS ORDERED: LIDOCAINE 1% INJ PF 5ML AMP ONE (15:13)
[2024-06-07] MEDS ORDERED: ESMOLOL HCL 10 ML IV ONE (15:13)
[2024-06-07] MEDS ORDERED: ONDANSETRON HCL 4 MG/2 ML VIAL ONE (15:13)
[2024-06-07] MEDS ORDERED: fentaNYL CITRATE 100 MCG/2 ML VL ONE (15:40)
--- NOTE | 2024-06-07 15:50 | DVHOP2 ---
Operative Report DATE OF PROCEDURE: 06/07/24 INDICATIONS FOR THE PROCEDURE: Massive GI bleeding hematemesis PROCEDURE PERFORMED: 1. Esophagogastroduodenoscopy and banding of large esophageal varices POSTOPERATIVE DIAGNOSIS: Large esophageal varices from mid esophagus down x3 banding done INFORMED CONSENT: The risks and benefits and alternatives were explained to the patient and informed consent was obtained. PROCEDURE IN DETAIL: The patient was kept NPO after midnight. In the OR MAC anesthesia was given to get her sedated. Olympus gastroscope was passed through the oropharynx into the stomach and the duodenum, and the findings were as follows. Esophagus: Large esophageal varices from mid esophagus down no gross bleeding seen at this time Stigmata of recent hemorrhage with some old clots seen Banding done with esophageal bands five bands put in No gross bleeding seen No esophageal ulcers Stomach: Fundus: Normal Body and antrum Normal no ulcers no gastritis Pylorus normal Duodenum normal Endoscopic impression Large esophageal varices for which banding done Suggestions Watch for any complication Follow hemoglobin closely If bleeding decreases slowly wean off the octreotide Continue with PPIs We will start on clear liquids and slowly advance to soft diet if no further bleeding Beta blockers on discharge Thank you for asking me to take part in the care of this pleasant patient AMY Jalloh MD Jun 07, 2024 15:50
[2024-06-07 15:56] LABS: Cannabinoid Screen, Urine Neg (NEGATIVE); Creatinine, Urine 138.23 mg/dL (30.0-125.0)
[2024-06-07 15:58] LABS: Sodium Urine < 10 mmol/L (40-220)
[2024-06-07 15:59] LABS: Amphetamine Screen, Urine Neg (NEGATIVE); Barbiturate Scree,Urine Neg (NEGATIVE); Benzodiazephine Screen, Urine Neg (NEGATIVE); Cocaine Screen, Urine Neg (NEGATIVE); Opiate Scree,Urine Neg (NEGATIVE); Phencyclidine Screen, Urine Neg (NEGATIVE)
[2024-06-07] MEDS: SUCCINYLCHOLINE CHLORIDE 20 MG/ML 10ML VIAL IV ONE (16:05)
[2024-06-07] MEDS: VASOPRESSIN 20 UNIT/ML ONE (16:05)
--- NOTE | 2024-06-07 17:34 | DVHPN2 ---
Subjective Patient is currently in OR/GI lab Reviewed: Care Plan Changes from previous H/P or p: No Changes Objective Vitals Vital Signs Date Time Temp Pulse Resp B/P (MAP) Pulse Ox O2 Delivery O2 Flow Rate FiO2 06/07/24 16:40 109/63 06/07/24 15:49 Room Air 0 98 06/07/24 15:49 109 15 98 06/07/24 15:49 97.6 97.6 Intake/Output Intake and Output 06/07/24 07:00 Intake Total 1881 ml Output Total 150 ml Balance 1731 ml Intake Oral 0 ml IV Total 681 ml Blood Product 1200 ml Other 0 ml Output Urine Total 150 ml Medications Current Medications Medications Dose Ordered Sig/Jose Route Start Time Stop Time Status Last Admin Dose Admin Norepinephrine Bitartrate 250 ml @ 3.75 mls/hr Q24H IV 06/06/24 20:15 06/07/24 07:46 52.5 MLS/HR Sodium Chloride 10 ml Q8HR IV 06/06/24 22:00 06/07/24 05:59 10 ML Docusate Sodium 100 mg BIDPRN PRN PO 06/06/24 20:15 Acetaminophen 650 mg Q6HP PRN PO 06/06/24 20:15 Hydromorphone HCl 0.5 mg Q4HP PRN IV 06/06/24 20:15 Ondansetron HCl 4 mg Q4HP PRN IV 06/06/24 20:15 Octreotide Acetate 500 mcg/ Sodium Chloride 100 ml @ 10 mls/hr Q10H IV 06/06/24 20:15 06/07/24 16:30 10 MLS/HR Sodium Chloride 1,000 ml @ 60 mls/hr [id number] IV 06/07/24 09:00 06/07/24 09:46 60 MLS/HR Laboratory Results Laboratory Tests 06/07/24 03:05 06/07/24 13:52 Chemistry Test 06/06/24 22:55 06/07/24 03:05 Albumin 2.9 g/dL (3.2-4.8) L Calcium Level 9.4 mg/dL (8.7-10.4) 9.7 mg/dL (8.7-10.4) Total Protein 5.1 g/dL (5.7-8.2) L Coagulation Test 06/07/24 03:05 Prothrombin Time 13.8 sec (9.3-11.8) H Prothrombin Time INR 1.34 (0.9-1.15) H LFT Test 06/06/24 22:55 Alanine Aminotransferase (ALT) 51 U/L (7-40) H Alkaline Phosphatase 44 U/L (46-116) L Aspartate Amino Transferase (AST) 130 U/L (13-40) H Total Bilirubin 1.8 mg/dL (0.2-1.0) H Urinalysis Test 06/06/24 20:41 Urine Color Light-orange (Yellow) Urine Clarity Turbid (Clear) H Urine pH 5.5 (5.0-9.0) Urine Specific [place] 1.022 (1.001-1.035) Urine Protein Negative (Negative) Urine Ketones 1+ (Negative) H Urine Blood 2+ /uL (Negative) H Urine Nitrite Negative (Negative) Urine Bilirubin Negative (Negative) Urine Urobilinogen Normal mg/dL (Negative) Urine Leukocyte Esterase 3+ /uL (Negative) Urine RBC <1 /hpf (0 - 4) Urine Microscopic WBC 2 /HPF (0-5) Urine Squamous Epithelial Cells Few /hpf (<5) Urine Bacteria Few /hpf (None Seen) H Urine Creatinine 138.23 mg/dL (30.0-125.0) H Urine Sodium < 10 mmol/L (40-220) L Urine Glucose Normal mg/dL (Normal) Assessment/Plan Assessment/Plan 68-year-old female presented to hospital with hematemesis and melena found to have acute upper GI bleed. Patient currently in OR/GI lab getting EGD. Bedside and will call me for any needs. We will follow up with GI recommendations. Continue Protonix and octreotide. Plan discussed with: Patient, Other Date of Service: Jun 07, 2024 Billing Provider: KOTA JIMENES MD Common Visit Codes: NOT BILLABLE KOTA JIMENES MD Jun 07, 2024 17:34
[2024-06-07 20:24] LABS: Basophils # (auto) 0 10 ^3/uL (0-0.2); Basophils % (auto) 0.2 % (0.0-2.0); Eosinophils # (auto) 0 10 ^3/uL (0-0.8); Eosinophils % (auto) 0.3 % (0.0-7.0); Hematocrit 22.8 % (36.0-46.0); Hemoglobin 7.7 g/dL (12.2-16.2); Lymphocytes # (auto) 1.8 10 ^3/uL (0.4-5.4); Lymphocytes % (auto) 15.3 % (10.0-50.0); Mean Corpuscular Hemoglobin 33.3 pg (28.0-32.0); Mean Corpuscular Hgb Conc. 33.6 g/dL (32.0-36.0); Mean Corpuscular Volume 99.2 fL (80.0-100.0); Monocytes # (auto) 1.2 10 ^3/uL (0-1.3); Monocytes % (auto) 9.9 % (0.0-12.0); Neutrophils # (auto) 8.8 10 ^3/uL (1.6-8.6); Neutrophils % (auto) 74.3 % (37.0-80.0); Nucleated Red Blood Cells % 0.2 %; Platelet Count (auto) 120 10^3/uL (140-450); Red Cell Distribution Width 15.4 % (11.8-14.3); White Blood Cell 11.9 10^3/uL (4.4-10.8)
--- NOTE | 2024-06-07 23:24 | DVHINCON2 ---
Date of service: Jun 07, 2024 Referring Physician Eduar Valencia MD Reason for Consultation GI hemorrhage and hypovolemic/hemorrhagic shock History of Present Illness 68-year-old woman with a history of GI bleed, anemia and hypertension who presented to the emergency room on 06/06/24 with syncopal episode. She apparently lost consciousness while ambulating to the restroom and she was found to be unconscious by construction mgr outside and was brought to the ER. By the EMS she had a low blood pressure of 77; apparently she has been having hematemesis and melena for the last few days. Patient has history of moderate ethanol abuse. Patient was admitted for further care d/t GI hemorrhage and hypovolemic/hemorrhagic shock and pulmonary consultation is requested for evaluation and management due to these findings. Review of Systems: 14-point review of systems negative unless otherwise noted above. Past Medical History: Hypertension, anemia, GI bleeding requiring transfusions in the past Past Surgical History: None Medications: Reviewed. Allergies: No known drug allergies. Family History: No family history of premature CAD. No family history of lung disorders. Social History: Nonsmoker. Hx of alcohol abuse. No illicit drug use. Allergies: Coded Allergies: NO KNOWN ALLERGIES (Unverified , 06/06/24) Current Medications Current Medications Medications (Trade) Dose Ordered Sig/Jose Route PRN Reason Start Time Stop Time Status Last Admin Sodium Chloride 1,000 ml @ 60 mls/hr [id number] IV 06/07/24 09:00 06/07/24 09:46 Vital Signs Vital Signs Date Time Temp Pulse Resp B/P (MAP) Pulse Ox O2 Delivery O2 Flow Rate FiO2 06/07/24 19:23 22 95 Room Air* 0 21 06/07/24 18:00 100 06/07/24 17:40 96/65 06/07/24 17:22 99.5 99.5 Physical Exam Gen.: Patient lying in bed in no apparent distress. Breathing on room air. Head: Normocephalic, atraumatic. Eyes: EOMI/PERRLA. Ears: Normal hearing. Normal anatomy. Neck/trachea: Trachea midline, supple. Nose: Normal external anatomy. Mouth: Moist mucous membranes. Chest: Decreased air entry bilaterally. No wheezing or rhonchi. Cardiovascular: Positive S1, positive S2. Regular rate and rhythm. Abdomen: Positive bowel sounds in all 4 quadrants. Soft, non-tender, non- distended. : Deferred. Rectal: Deferred. Skin: Warm, dry. Intact. Extremities: 2+ radial pulses bilaterally. No lower extremity edema. Neuro: Awake, alert, oriented x3. No gross motor or sensory deficits. Cranial nerves II through XII intact. Gait not assessed. Labs/Diagnostic Data Labs Test 06/07/24 20:08 06/07/24 03:05 06/06/24 22:55 06/06/24 20:41 Range/Units White Blood Count 11.9 #H 4.4-10.8 10^3/uL Red Blood Count 2.30 L 4.0-5.20 10^6/uL Hemoglobin 7.7 L 12.2-16.2 g/dL Hematocrit 22.8 #L 36.0-46.0 % Mean Corpuscular Volume 99.2 80.0-100.0 fL Mean Corpuscular Hemoglobin 33.3 H 28.0-32.0 pg Mean Corpuscular Hemoglobin Concent 33.6 32.0-36.0 g/dL Red Cell Distribution Width 15.4 H 11.8-14.3 % Platelet Count 120 L 140-450 10^3/uL Mean Platelet Volume 8.1 6.9-10.8 fL Neutrophils (%) (Auto) 74.3 37.0-80.0 % Lymphocytes (%) (Auto) 15.3 10.0-50.0 % Monocytes (%) (Auto) 9.9 0.0-12.0 % Eosinophils (%) (Auto) 0.3 0.0-7.0 % Basophils (%) (Auto) 0.2 0.0-2.0 % Neutrophils # (Auto) 8.8 H 1.6-8.6 10 ^3/uL Lymphocytes # (Auto) 1.8 0.4-5.4 10 ^3/uL Monocytes # (Auto) 1.2 0-1.3 10 ^3/uL Eosinophils # (Auto) 0 0-0.8 10 ^3/uL Basophils # (Auto) 0 0-0.2 10 ^3/uL Nucleated Red Blood Cells 0.2 % Prothrombin Time 13.8 H 9.3-11.8 sec Prothrombin Time INR 1.34 H 0.9-1.15 Sodium Level 136 136-145 mmol/L Potassium Level 3.6 3.5-5.1 mmol/L Chloride Level 104 98-107 mmol/L Carbon Dioxide Level 20 20-31 mmol/L Anion Gap 12 5-15 Blood Urea Nitrogen 59 H 9-23 mg/dL Creatinine 1.12 H 0.550-1.02 mg/dL Glomerular Filtration Rate Calc 53 >90 mL/min BUN/Creatinine Ratio 52.7 H 10.0-20.0 Serum Glucose 126 H 74-106 mg/dL Calcium Level 9.7 8.7-10.4 mg/dL Plasma/Serum Blood Alcohol < 3.0 <10 mg/dL Total Bilirubin 1.8 H 0.2-1.0 mg/dL Aspartate Amino Transferase (AST) 130 H 13-40 U/L Alanine Aminotransferase (ALT) 51 H 7-40 U/L Alkaline Phosphatase 44 L 46-116 U/L Ammonia 47 H 11-32 umol/L Total Protein 5.1 L 5.7-8.2 g/dL Albumin 2.9 L 3.2-4.8 g/dL Urine Color Light-orange Yellow Urine Clarity Turbid H Clear Urine pH 5.5 5.0-9.0 Urine Specific [place] 1.022 1.001-1.035 Urine Protein Negative Negative Urine Ketones 1+ H Negative Urine Blood 2+ H Negative /uL Urine Nitrite Negative Negative Urine Bilirubin Negative Negative Urine Urobilinogen Normal Negative mg/dL Urine Leukocyte Esterase 3+ Negative /uL Urine RBC <1 0 - 4 /hpf Urine Microscopic WBC 2 0-5 /HPF Urine Squamous Epithelial Cells Few <5 /hpf Urine Bacteria Few H None Seen /hpf Urine Creatinine 138.23 H 30.0-125.0 mg/dL Urine Sodium < 10 L 40-220 mmol/L Urine Glucose Normal Normal mg/dL Urine Opiates Screen Neg NEGATIVE Urine Fentanyl Screen Neg NEGATIVE Urine Barbiturates Screen Neg NEGATIVE Urine Phencyclidine Screen Neg NEGATIVE Urine Amphetamines Screen Neg NEGATIVE Urine Benzodiazepines Screen Neg NEGATIVE Urine Cocaine Screen Neg NEGATIVE Urine Cannabinoids Screen Neg NEGATIVE Test 06/06/24 16:15 Range/Units Activated Partial Thromboplast Time 29.9 24.5-34.5 SEC Assessment Impression: GI hemorrhage Hypovolemic/hemorrhagic shock Acute kidney injury Cirrhosis Alcohol abuse Obesity BMI 41.3 Plan: Supplemental oxygen PRN Titrate to keep O2 sats above 92%. On pressors (Levophed) for hemodynamic support On Levophed 6 mcg/min. Titrate to keep mean arterial pressure greater than 65 mmHg Monitor hemoglobin Transfuse if less than 7 g/dL GI recs appreciated Monitor renal function. Monitor electrolytes. Supplement as necessary. Monitor ins and outs. DVT prophylaxis - SCD. Prognosis: Poor given patient's multiple co-morbidities. Rest of plan per hospitalist and other consultants. Thank you Dr. Mejia for allowing me to participate in this patient's care. Further recommendations will depend on the patient's clinical course. Please do not hesitate to contact me if you have any questions or concerns. This medical document was created using an electronic medical record system with [employer] computerized dictation system. Although these documentations are being carefully reviewed, there may still be some phonetic and typographical changes. The errors are purely typographical, due to imperfection on the software progr am, and do not reflect any compromise in the patient's medical care. Plan discussed with: Other (JOJO Adam/MD Mejia) JH REZA MD Jun 07, 2024 23:24
[2024-06-08] VITALS (34 sets, daily range): BP systolic 96–130; BP diastolic 57–81; PULSE 65–105; RESP 14–24; TEMP 98.3–99.2; O2SAT 87–100
[2024-06-08 04:18] LABS: Basophils # (auto) 0 10 ^3/uL (0-0.2); Eosinophils # (auto) 0.2 10 ^3/uL (0-0.8); Eosinophils % (auto) 1.4 % (0.0-7.0); Hemoglobin 7.9 g/dL (12.2-16.2); Monocytes # (auto) 1.2 10 ^3/uL (0-1.3); Platelet Count (auto) 111 10^3/uL (140-450); Red Cell Distribution Width 15.1 % (11.8-14.3)
[2024-06-08 04:21] LABS: Basophils % (auto) 0.3 % (0.0-2.0); Hematocrit 23.5 % (36.0-46.0); Lymphocytes % (auto) 26.4 % (10.0-50.0); Mean Corpuscular Hemoglobin 33.9 pg (28.0-32.0); Mean Corpuscular Hgb Conc. 33.8 g/dL (32.0-36.0); Mean Corpuscular Volume 100.4 fL (80.0-100.0); Monocytes % (auto) 10.6 % (0.0-12.0); Neutrophils # (auto) 6.9 10 ^3/uL (1.6-8.6); Neutrophils % (auto) 61.3 % (37.0-80.0); Nucleated Red Blood Cells % 0.3 %; Red Blood Cells 2.34 10^6/uL (4.0-5.20); White Blood Cell 11.3 10^3/uL (4.4-10.8)
[2024-06-08 04:27] LABS: Sodium 140 mmol/L (136-145)
[2024-06-08 04:28] LABS: Anion Gap 9 (5-15); Calcium 9.3 mg/dL (8.7-10.4); Carbon Dioxide 23 mmol/L (20-31)
[2024-06-08 04:32] LABS: Chloride 108 mmol/L (98-107); Potassium 3.5 mmol/L (3.5-5.1)
[2024-06-08 04:33] LABS: BUN/Creatinine Ratio 40.5 (10.0-20.0); Glucose 99 mg/dL (74-106)
[2024-06-08 04:42] LABS: Blood Urea Nitrogen 32 mg/dL (9-23)
[2024-06-08 05:26] LABS: INR 1.21 (0.9-1.15); Prothrombin Time 12.6 sec (9.3-11.8)
[2024-06-08] MEDS: OCTREOTIDE ACETATE 500 MCG in SODIUM CHL 0.9% 99 ML IV SCH (08:30)
[2024-06-08] MEDS: PANTOPRAZOLE 40 MG TAB PO SCH (08:57)
--- NOTE | 2024-06-08 14:59 | DVHPN2 ---
Progress Note - Dictate Date Seen: Jun 08, 2024 Has the PT tested + for MRSA If YES, has PT been informed?: No Medical Necessity Reason Pt with a Central, PICC or Fol: No Subjective Feeling much better No further bleeding after the banding Hemoglobin stable Tolerated diet well vital signs Vital Sign Date Time Temp Pulse Resp B/P (MAP) Pulse Ox O2 Delivery O2 Flow Rate FiO2 06/08/24 14:00 68 16 103/71 (82) 98 06/08/24 13:46 Nasal Cannula* 2 28 06/08/24 12:00 98.8 98.8 Total Intake and Output 06/07/24 06/07/24 06/08/24 15:00 23:00 07:00 Intake Total 737.5 ml 892.50 ml 601.25 ml Balance 737.5 ml 892.50 ml 601.25 ml medications Current Medications Medications Dose Ordered Sig/Jsoe Route Start Time Stop Time Status Last Admin Dose Admin Sodium Chloride 10 ml Q8HR IV 06/06/24 22:00 06/08/24 10:58 10 ML Docusate Sodium 100 mg BIDPRN PRN PO 06/06/24 20:15 Acetaminophen 650 mg Q6HP PRN PO 06/06/24 20:15 Hydromorphone HCl 0.5 mg Q4HP PRN IV 06/06/24 20:15 Ondansetron HCl 4 mg Q4HP PRN IV 06/06/24 20:15 Octreotide Acetate 500 mcg/ Sodium Chloride 100 ml @ 5 mls/hr Q20H IV 06/08/24 08:30 06/08/24 08:30 5 MLS/HR Pantoprazole Sodium 40 mg BID PO 06/08/24 10:00 06/08/24 08:57 40 MG Propranolol HCl 10 mg BID PO 06/08/24 22:00 objective Abdomen soft nontender Vital stable No Further bleeding laboratory and microbiology Laboratory Tests 06/08/24 03:51 Test 06/08/24 03:51 Range/Units Serum Glucose 99 74-106 mg/dL Assessment/Plan Patient is doing better after banding without any further bleeding We will recommend to wean off Sandostatin as well as put on Protonix only p.o. Increase the diet to soft diet and advance as tolerated Could be downgraded from the ICU if okay with primary care Thank you Dr. Flower Plan discussed with: Patient CC Plasma Assessment Blood Product Administration S: [id number] AMY FLOWER MD Jun 08, 2024 14:59
--- NOTE | 2024-06-08 15:37 | DVHPN2 ---
Subjective 68-year-old female status post EGD with esophageal versus pending. Hemoglobin stable. Reviewed: Care Plan Changes from previous H/P or p: No Changes Objective Vitals Vital Signs Date Time Temp Pulse Resp B/P (MAP) Pulse Ox O2 Delivery O2 Flow Rate FiO2 06/08/24 14:00 68 16 103/71 (82) 98 06/08/24 13:46 Nasal Cannula* 2 28 06/08/24 12:00 98.8 98.8 Intake/Output Intake and Output 06/08/24 07:00 Intake Total 2231.25 ml Balance 2231.25 ml Intake Oral 820 ml IV Total 1411.25 ml # Voids 3 Exam HEENT pupils are reactive Neck is supple CVS S1-S2 regular rate and rhythm Respiratory bilateral clear GI positive bowel sound Extremity no edema CLINICAL STAFF RN no motor deficit Medications Current Medications Medications Dose Ordered Sig/Jose Route Start Time Stop Time Status Last Admin Dose Admin Sodium Chloride 10 ml Q8HR IV 06/06/24 22:00 06/08/24 10:58 10 ML Docusate Sodium 100 mg BIDPRN PRN PO 06/06/24 20:15 Acetaminophen 650 mg Q6HP PRN PO 06/06/24 20:15 Hydromorphone HCl 0.5 mg Q4HP PRN IV 06/06/24 20:15 Ondansetron HCl 4 mg Q4HP PRN IV 06/06/24 20:15 Octreotide Acetate 500 mcg/ Sodium Chloride 100 ml @ 5 mls/hr Q20H IV 06/08/24 08:30 06/08/24 08:30 5 MLS/HR Pantoprazole Sodium 40 mg BID PO 06/08/24 10:00 06/08/24 08:57 40 MG Propranolol HCl 10 mg BID PO 06/08/24 22:00 Laboratory Results Laboratory Tests 06/08/24 03:51 Chemistry Test 06/08/24 03:51 Calcium Level 9.3 mg/dL (8.7-10.4) Coagulation Test 06/08/24 03:51 Prothrombin Time 12.6 sec (9.3-11.8) H Prothrombin Time INR 1.21 (0.9-1.15) H Urinalysis Test 06/06/24 20:41 Urine Color Light-orange (Yellow) Urine Clarity Turbid (Clear) H Urine pH 5.5 (5.0-9.0) Urine Specific Ezel 1.022 (1.001-1.035) Urine Protein Negative (Negative) Urine Ketones 1+ (Negative) H Urine Blood 2+ /uL (Negative) H Urine Nitrite Negative (Negative) Urine Bilirubin Negative (Negative) Urine Urobilinogen Normal mg/dL (Negative) Urine Leukocyte Esterase 3+ /uL (Negative) Urine RBC <1 /hpf (0 - 4) Urine Microscopic WBC 2 /HPF (0-5) Urine Squamous Epithelial Cells Few /hpf (<5) Urine Bacteria Few /hpf (None Seen) H Urine Creatinine 138.23 mg/dL (30.0-125.0) H Urine Sodium < 10 mmol/L (40-220) L Urine Glucose Normal mg/dL (Normal) Microbiology Microbiology Date/Time Source Procedure Growth Status 06/07/24 17:15 Nose MRSA Screen - Final Complete Assessment/Plan Assessment/Plan 68-year-old female presented to hospital with hematemesis and melena found to have acute upper GI bleed. Patient is status post EGD with esophageal varices banding placement. Patient has already received 2 units of packed RBC 1. Acute blood loss anemia secondary to upper GI bleed 2. Upper GI bleed with esophageal varices status post banding 3. Hypovolemic and hemorrhagic shock currently off the Levophed 4. Acute kidney injury suspected secondary to vasomotor nephropathy 5. Leukocytosis 6. UTI 7. Liver cirrhosis 8. History of hepatitis-C status post treatment in the past -continue Protonix, monitor H&H, start IV antibiotic for UTI -follow up GI recommendations., patient can be downgraded to telemetry. Plan discussed with: Patient My Orders Orders - KOTA JIMENES MD Procedure Category Date Status Time Transfer Orders XFER 06/08/24 Transmitted 14:17 Propranolol Hcl PHA 06/08/24 In Process Tablet (Inderal 22:00 Ceftriaxone Ivpb PHA 06/08/24 Transmitted Rocephin 15:45 Problem List: (1) Blood loss anemia (2) Hypotension (3) Upper GI bleed Date of Service: Jun 08, 2024 Billing Provider: KOTA JIMENES MD Common Visit Codes: NOT BILLABLE KOTA JIMENES MD Jun 08, 2024 15:37
[2024-06-08] MEDS: cefTRIAXone 1GM/50ML D5W 50 ML IV SCH (16:45)
--- NOTE | 2024-06-08 18:35 | DVHPN2 ---
Progress Note Date Seen: Jun 08, 2024 Has the PT tested + for MRSA If YES, has PT been informed?: No Medical Necessity Reason Pt with a Central, PICC or Fol: No Subjective Patient reports: Feels better Objective vital signs Vital Sign Date Time Temp Pulse Resp B/P (MAP) Pulse Ox O2 Delivery O2 Flow Rate FiO2 06/08/24 17:00 98.3 84 18 121/64 (83) 92 98.3 06/08/24 16:00 Nasal Cannula* 2 28 Total Intake and Output 06/07/24 06/07/24 06/08/24 15:00 23:00 07:00 Intake Total 737.5 ml 892.50 ml 601.25 ml Balance 737.5 ml 892.50 ml 601.25 ml medications Current Medications Medications Dose Ordered Sig/Jose Route Start Time Stop Time Status Last Admin Dose Admin Sodium Chloride 10 ml Q8HR IV 06/06/24 22:00 06/08/24 10:58 10 ML Docusate Sodium 100 mg BIDPRN PRN PO 06/06/24 20:15 Acetaminophen 650 mg Q6HP PRN PO 06/06/24 20:15 Hydromorphone HCl 0.5 mg Q4HP PRN IV 06/06/24 20:15 Ondansetron HCl 4 mg Q4HP PRN IV 06/06/24 20:15 Octreotide Acetate 500 mcg/ Sodium Chloride 100 ml @ 5 mls/hr Q20H IV 06/08/24 08:30 06/08/24 08:30 5 MLS/HR Pantoprazole Sodium 40 mg BID PO 06/08/24 10:00 06/08/24 08:57 40 MG Propranolol HCl 10 mg BID PO 06/08/24 22:00 Ceftriaxone Sodium 50 ml @ 100 mls/hr DAILY@09 IV 06/08/24 15:45 06/08/24 16:45 100 MLS/HR Examination: GENERAL:Normal, ABDOMEN:Abnormal laboratory and microbiology Laboratory Tests 06/08/24 03:51 Test 06/08/24 03:51 Range/Units Serum Glucose 99 74-106 mg/dL Microbiology Date/Time Source Procedure Growth Status 06/07/24 17:15 Nose MRSA Screen - Final Complete Problem List/Assessment/Plan Problem List/Assessment/Plan Acute kidney injury suspect prerenal in setting of hypotension and syncope LOC anemia due to GIB s/p esophageal varices s/p banding 06/07/24 cirrhosis; high AST suggestive of etoh liver disease leukocytosis supportive care for BP IVF GI Currently has no obvious signs of alcohol withdrawal recommend continue daily monitoring Slava resolved with volume management , no further recommendations will sign off case. rest of care per primary doctor Plan discussed with: Patient CC Plasma Assessment Blood Product Administration S: [id number] SHAMA MADISON MD Jun 08, 2024 18:35
--- NOTE | 2024-06-08 21:21 | DVHPN2 ---
Progress Note - Dictate Date Seen: Jun 08, 2024 Has the PT tested + for MRSA If YES, has PT been informed?: No Medical Necessity Reason Pt with a Central, PICC or Fol: No Subjective Patient seen and examined at bedside. Remains on supplemental oxygen Overnight events reviewed. vital signs Vital Sign Date Time Temp Pulse Resp B/P (MAP) Pulse Ox O2 Delivery O2 Flow Rate FiO2 06/08/24 18:00 20 98 Nasal Cannula* 2 28 06/08/24 18:00 72 06/08/24 17:00 98.3 121/64 (83) 98.3 Total Intake and Output 06/07/24 06/07/24 06/08/24 15:00 23:00 07:00 Intake Total 737.5 ml 892.50 ml 601.25 ml Balance 737.5 ml 892.50 ml 601.25 ml medications Current Medications Medications Dose Ordered Sig/Jose Route Start Time Stop Time Status Last Admin Dose Admin Sodium Chloride 10 ml Q8HR IV 06/06/24 22:00 06/08/24 10:58 10 ML Docusate Sodium 100 mg BIDPRN PRN PO 06/06/24 20:15 Acetaminophen 650 mg Q6HP PRN PO 06/06/24 20:15 Hydromorphone HCl 0.5 mg Q4HP PRN IV 06/06/24 20:15 Ondansetron HCl 4 mg Q4HP PRN IV 06/06/24 20:15 Octreotide Acetate 500 mcg/ Sodium Chloride 100 ml @ 5 mls/hr Q20H IV 06/08/24 08:30 06/08/24 08:30 5 MLS/HR Pantoprazole Sodium 40 mg BID PO 06/08/24 10:00 06/08/24 08:57 40 MG Propranolol HCl 10 mg BID PO 06/08/24 22:00 Ceftriaxone Sodium 50 ml @ 100 mls/hr DAILY@09 IV 06/08/24 15:45 06/08/24 16:45 100 MLS/HR objective Gen.: Patient lying in bed in no apparent distress. On supplemental oxygen. Head: Normocephalic, atraumatic. Eyes: EOMI/PERRLA. Ears: Normal hearing. Normal anatomy. Neck/trachea: Trachea midline, supple. Nose: Normal external anatomy. Mouth: Moist mucous membranes. Chest: Decreased air entry bilaterally. No wheezing or rhonchi. Cardiovascular: Positive S1, positive S2. Regular rate and rhythm. Abdomen: Positive bowel sounds in all 4 quadrants. Soft, non-tender, non- distended. : Deferred. Rectal: Deferred. Skin: Warm, dry. Intact. Extremities: 2+ radial pulses bilaterally. No lower extremity edema. Neuro: Awake, alert, oriented x3. No gross motor or sensory deficits. Cranial nerves II through XII intact. Gait not assessed. laboratory and microbiology Laboratory Tests 06/08/24 03:51 Test 06/08/24 03:51 Range/Units Serum Glucose 99 74-106 mg/dL Assessment/Plan Impression: GI hemorrhage Hypovolemic/hemorrhagic shock Acute kidney injury Cirrhosis Alcohol abuse Obesity BMI 41.3 Events: Remains on supplemental oxygen, 2 LPM NC Taper O2 as tolerated Continue antibiotics for UTI Incentive spirometry WBC trending down. Currently off pressors Pt required pressors for hemodynamic support until 3 AM. She has been hemodynamically stable. GI recommendations appreciated. Monitor hemoglobin - 7.9 g/dL Transfuse if less than 7.0 g/dL. Monitor renal function BUN trending down, creatinine within normal limits. Nephrology recs appreciated. UGI bleed, s/p banding. Labs and imaging reviewed. Rest of plan as noted below. Plan: Supplemental oxygen Titrate to keep O2 sats above 92%. Pressors if necessary hemodynamic support Titrate to keep mean arterial pressure greater than 65 mmHg Monitor hemoglobin Transfuse if less than 7 g/dL GI recs appreciated Monitor renal function. Monitor electrolytes. Supplement as necessary. Monitor ins and outs. DVT prophylaxis - SCD. Prognosis: Poor given patient's multiple co-morbidities. Condition: Critical Rest of plan per hospitalist and other consultants. A total of 35 minutes of critical care time was spent reviewing the patient record, examining the patient, making a diagnostic and therapeutic plan, discussing this plan with the medical personnel, following up on diagnostic studies and following the patient for clinical stability excluding any and all procedures. At least 50% of this time was spent in direct, [id number] contact. Thank you Dr. Mejia for allowing me to participate in this patient's care. Further recommendations will depend on the patient's clinical course. Please do not hesitate to contact me if you have any questions or concerns. This medical document was created using an electronic medical record system with Dragon computerized dictation system. Although these documentations are being carefully reviewed, there may still be some phonetic and typographical changes. The errors are purely typographical, due to imperfection on the software program, and do not reflect any compromise in the patient's medical care. Plan discussed with: Other (JOJO Rivera) Critical Care Time(min): 35 CC Plasma Assessment Blood Product Administration S: [id number] JH REZA MD Jun 08, 2024 21:21
[2024-06-08] MEDS: PROPRANOLOL HCL 20 MG TAB PO SCH (21:42)
[2024-06-09] VITALS (7 sets, daily range): BP systolic 94–111; BP diastolic 58–77; PULSE 72–97; RESP 17; TEMP 97.9–98.5; O2SAT 92–97
[2024-06-09 06:54] LABS: Basophils # (auto) 0 10 ^3/uL (0-0.2); Basophils % (auto) 0.2 % (0.0-2.0); Eosinophils # (auto) 0.2 10 ^3/uL (0-0.8); Hematocrit 23.1 % (36.0-46.0); Lymphocytes # (auto) 1.6 10 ^3/uL (0.4-5.4); Neutrophils # (auto) 4.4 10 ^3/uL (1.6-8.6); Neutrophils % (auto) 62.6 % (37.0-80.0)
[2024-06-09 06:58] LABS: Eosinophils % (auto) 3.5 % (0.0-7.0); Hemoglobin 7.9 g/dL (12.2-16.2); Lymphocytes % (auto) 23.2 % (10.0-50.0); Mean Corpuscular Hemoglobin 34.5 pg (28.0-32.0); Mean Corpuscular Hgb Conc. 34.3 g/dL (32.0-36.0); Mean Corpuscular Volume 100.6 fL (80.0-100.0); Monocytes # (auto) 0.7 10 ^3/uL (0-1.3); Monocytes % (auto) 10.5 % (0.0-12.0); Nucleated Red Blood Cells % 0.4 %; Platelet Count (auto) 124 10^3/uL (140-450); Red Blood Cells 2.29 10^6/uL (4.0-5.20); White Blood Cell 7.1 10^3/uL (4.4-10.8)
[2024-06-09 07:00] LABS: INR 1.16 (0.9-1.15); Prothrombin Time 12.1 sec (9.3-11.8)
[2024-06-09 07:08] LABS: Alkaline Phosphatase 74 U/L (46-116); Anion Gap 8 (5-15); Blood Urea Nitrogen 17 mg/dL (9-23); Calcium 8.9 mg/dL (8.7-10.4); Carbon Dioxide 25 mmol/L (20-31); Chloride 105 mmol/L (98-107); Magnesium 1.8 mg/dL (1.6-2.6); Sodium 138 mmol/L (136-145)
[2024-06-09 07:09] LABS: Alanine Aminotransferase 137 U/L (7-40); Albumin 3.1 g/dL (3.2-4.8); Aspartate Aminotransferase 229 U/L (13-40); Bilirubin, Total 0.5 mg/dL (0.2-1.0); Glucose 112 mg/dL (74-106); Potassium 3.3 mmol/L (3.5-5.1); Total Protein 5.2 g/dL (5.7-8.2)
--- NOTE | 2024-06-09 11:33 | ECG ---
[facility] Test Date: 2024-06-06 Test Time: 15:36:27 Pat Name: HUEY VILLALPANDO Department: ED Room: 0297T A Gender: F Spine Specialist: NADIA : 1955 Requested By: MAYA YANEZ Order Number: [id number] Reading MD: Hiren Stewart Measurements Intervals [place] Rate: 102 P: 53 TN: 151 QRS: -13 QRSD: 84 T: 34 QT: 381 QTc: 497 Interpretive Statements Sinus tachycardia Borderline prolonged QT interval Electronically Signed On 06-09-2024 21:08:34 PST by Hiren Stewart Please click the below link to view image of tracing.
[2024-06-09] MEDS ORDERED: PROP1TAB53 PO (15:49)
[2024-06-09] MEDS ORDERED: CEFD300C2 PO (15:49)
[2024-06-09] MEDS ORDERED: PANT40T PO (15:49)
--- NOTE | 2024-06-09 22:18 | DVHPN2 ---
Progress Note - Dictate Date Seen: Jun 09, 2024 Has the PT tested + for MRSA If YES, has PT been informed?: No Medical Necessity Reason Pt with a Central, PICC or Fol: No Subjective Patient seen and examined at bedside. Currently on room air Overnight events reviewed. vital signs Vital Sign Date Time Temp Pulse Resp B/P (MAP) Pulse Ox O2 Delivery O2 Flow Rate FiO2 06/09/24 17:02 97 06/09/24 16:43 98.1 17 95/58 (70) 97 98.1 06/09/24 08:00 Room Air* 0 21 Total Intake and Output 06/08/24 06/08/24 06/09/24 15:00 23:00 07:00 Intake Total 395 ml 125 ml Balance 395 ml 125 ml objective Gen.: Patient lying in bed in no apparent distress. On room air. Head: Normocephalic, atraumatic. Eyes: EOMI/PERRLA. Ears: Normal hearing. Normal anatomy. Neck/trachea: Trachea midline, supple. Nose: Normal external anatomy. Mouth: Moist mucous membranes. Chest: Decreased air entry bilaterally. No wheezing or rhonchi. Cardiovascular: Positive S1, positive S2. Regular rate and rhythm. Abdomen: Positive bowel sounds in all 4 quadrants. Soft, non-tender, non- distended. : Deferred. Rectal: Deferred. Skin: Warm, dry. Intact. Extremities: 2+ radial pulses bilaterally. No lower extremity edema. Neuro: Awake, alert, oriented x3. No gross motor or sensory deficits. Cranial nerves II through XII intact. Gait not assessed. laboratory and microbiology Laboratory Tests 06/09/24 06:11 Test 06/09/24 06:11 Range/Units Serum Glucose 112 H 74-106 mg/dL Assessment/Plan Impression: GI hemorrhage Hypovolemic/hemorrhagic shock Acute kidney injury Cirrhosis Alcohol abuse Obesity BMI 41.3 Events: Tapered off supplemental O2, currently on room air Supplemental oxygen PRN. Hemoglobin is stable Continue antibiotics for UTI Incentive spirometry Off pressors, hemodynamically stable. GI recommendations appreciated. Monitor renal function BUN trending down, creatinine within normal limits. Nephrology recs appreciated. UGI bleed, s/p banding. Follow up with GI as outpatient Patient is stable for discharge from the pulmonary standpoint. Labs and imaging reviewed. Rest of plan as noted below. Plan: Supplemental oxygen PRN Titrate to keep O2 sats above 92%. Pressors if necessary hemodynamic support Titrate to keep mean arterial pressure greater than 65 mmHg Monitor hemoglobin Transfuse if less than 7 g/dL GI recs appreciated Monitor renal function. Monitor electrolytes. Supplement as necessary. Monitor ins and outs. DVT prophylaxis - SCD. Prognosis: Guarded given patient's multiple co-morbidities. Rest of plan per hospitalist and other consultants. Thank you Dr. Mejia for allowing me to participate in this patient's care. Further recommendations will depend on the patient's clinical course. Please do not hesitate to contact me if you have any questions or concerns. This medical document was created using an electronic medical record system with [employer] dictation system. Although these documentations are being carefully reviewed, there may still be some phonetic and typographical changes. The errors are purely typographical, due to imperfection on the software program, and do not reflect any compromise in the patient's medical care. Plan discussed with: Patient, Other (RN) CC Plasma Assessment Blood Product Administration S: [id number] JH REZA MD Jun 09, 2024 22:18
--- NOTE | 2024-06-11 16:24 | DVHDS2 ---
Discharge Summary Date of Admission Jun 06, 2024 at 20:10 Date of Discharge: Jun 09, 2024 Labs/Diagnostic Data: Laboratory Results Test 06/09/24 06:11 06/07/24 03:05 06/06/24 22:55 06/06/24 20:41 White Blood Count 7.1 10^3/uL (4.4-10.8) Red Blood Count 2.29 10^6/uL (4.0-5.20) Hemoglobin 7.9 g/dL (12.2-16.2) Hematocrit 23.1 % (36.0-46.0) Mean Corpuscular Volume 100.6 fL (80.0-100.0) Mean Corpuscular Hemoglobin 34.5 pg (28.0-32.0) Mean Corpuscular Hemoglobin Concent 34.3 g/dL (32.0-36.0) Red Cell Distribution Width 15.0 % (11.8-14.3) Platelet Count 124 10^3/uL (140-450) Mean Platelet Volume 8.2 fL (6.9-10.8) Neutrophils (%) (Auto) 62.6 % (37.0-80.0) Lymphocytes (%) (Auto) 23.2 % (10.0-50.0) Monocytes (%) (Auto) 10.5 % (0.0-12.0) Eosinophils (%) (Auto) 3.5 % (0.0-7.0) Basophils (%) (Auto) 0.2 % (0.0-2.0) Neutrophils # (Auto) 4.4 10 ^3/uL (1.6-8.6) Lymphocytes # (Auto) 1.6 10 ^3/uL (0.4-5.4) Monocytes # (Auto) 0.7 10 ^3/uL (0-1.3) Eosinophils # (Auto) 0.2 10 ^3/uL (0-0.8) Basophils # (Auto) 0 10 ^3/uL (0-0.2) Nucleated Red Blood Cells 0.4 % Prothrombin Time 12.1 sec (9.3-11.8) Prothrombin Time INR 1.16 (0.9-1.15) Sodium Level 138 mmol/L (136-145) Potassium Level 3.3 mmol/L (3.5-5.1) Chloride Level 105 mmol/L (98-107) Carbon Dioxide Level 25 mmol/L (20-31) Anion Gap 8 (5-15) Blood Urea Nitrogen 17 mg/dL (9-23) Creatinine 0.74 mg/dL (0.550-1.02) Glomerular Filtration Rate Calc 88 mL/min (>90) BUN/Creatinine Ratio 23.0 (10.0-20.0) Serum Glucose 112 mg/dL (74-106) Calcium Level 8.9 mg/dL (8.7-10.4) Magnesium Level 1.8 mg/dL (1.6-2.6) Total Bilirubin 0.5 mg/dL (0.2-1.0) Aspartate Amino Transferase (AST) 229 U/L (13-40) Alanine Aminotransferase (ALT) 137 U/L (7-40) Alkaline Phosphatase 74 U/L (46-116) Total Protein 5.2 g/dL (5.7-8.2) Albumin 3.1 g/dL (3.2-4.8) Plasma/Serum Blood Alcohol < 3.0 mg/dL (<10) Ammonia 47 umol/L (11-32) Urine Color Light-orange (Yellow) Urine Clarity Turbid (Clear) Urine pH 5.5 (5.0-9.0) Urine Specific Theodore 1.022 (1.001-1.035) Urine Protein Negative (Negative) Urine Ketones 1+ (Negative) Urine Blood 2+ /uL (Negative) Urine Nitrite Negative (Negative) Urine Bilirubin Negative (Negative) Urine Urobilinogen Normal mg/dL (Negative) Urine Leukocyte Esterase 3+ /uL (Negative) Urine RBC <1 /hpf (0 - 4) Urine Microscopic WBC 2 /HPF (0-5) Urine Squamous Epithelial Cells Few /hpf (<5) Urine Bacteria Few /hpf (None Seen) Urine Creatinine 138.23 mg/dL (30.0-125.0) Urine Sodium < 10 mmol/L (40-220) Urine Glucose Normal mg/dL (Normal) Urine Opiates Screen Neg (NEGATIVE) Urine Fentanyl Screen Neg (NEGATIVE) Urine Barbiturates Screen Neg (NEGATIVE) Urine Phencyclidine Screen Neg (NEGATIVE) Urine Amphetamines Screen Neg (NEGATIVE) Urine Benzodiazepines Screen Neg (NEGATIVE) Urine Cocaine Screen Neg (NEGATIVE) Urine Cannabinoids Screen Neg (NEGATIVE) Test 06/06/24 16:15 Activated Partial Thromboplast Time 29.9 SEC (24.5-34.5) Other Laboratory Tests 06/09/24 06:11 Brief Hx & Hospital Course: 68-year-old female presented to hospital with hematemesis and melena found to have acute upper GI bleed. Patient is status post EGD with esophageal varices banding placement. Patient has already received 2 units of packed RBC still the patient was initially in hypovolemic and hemorrhagic shock currently off of vasopressor. Patient's osman to have UTI which was treated with IV antibiotics. The patient does not have known history of hepatitis-C in the past was treated for that Patient is being discharged under stable condition as she is tolerating diet. Patient needs to follow up with the PCP as well as GI in 1-2 weeks Condition at Discharge: Stable Final Diagnosis/Problems List 68-year-old female presented to hospital with hematemesis and melena found to have acute upper GI bleed. Patient is status post EGD with esophageal varices banding placement. Patient has already received 2 units of packed RBC 1. Acute blood loss anemia secondary to upper GI bleed 2. Upper GI bleed with esophageal varices status post banding 3. Hypovolemic and hemorrhagic shock currently off the Levophed 4. Acute kidney injury suspected secondary to vasomotor nephropathy 5. Leukocytosis 6. UTI 7. Liver cirrhosis 8. History of hepatitis-C status post treatment in the past Discharge Disposition: Home SNF Discharge Will this Physician continue t: No Discharge Instruct/Medications Diet: Cardiac 2g Na,low cholest Activity: No Restrictions, As Tolerated Follow Up/Referral: Follow up with the PCP in one week Follow up with GI in one week Medications: As reconciled Discharge Statement: "Patient was advised to return to the ER or call 911 if any headaches, dizziness, shortness of breath, chest pain, abdominal pain, bleeding, fevers, or worsening of medical condition. Patient was counseled about treatment plan, medications, possible side effects, patientverbalized understanding. All questions were answered to the best of my ability. This discharge took greater then 30 minutes in planning, reviewing documentation, counseling the patient, and discussing with other team members." ASSESSMENT ASSESSMENT Assessment 68-year-old female presented to hospital with hematemesis and melena found to have acute upper GI bleed. Patient is status post EGD with esophageal varices banding placement. Patient has already received 2 units of packed RBC 1. Acute blood loss anemia secondary to upper GI bleed 2. Upper GI bleed with esophageal varices status post banding 3. Hypovolemic and hemorrhagic shock currently off the Levophed 4. Acute kidney injury suspected secondary to vasomotor nephropathy 5. Leukocytosis 6. UTI 7. Liver cirrhosis 8. History of hepatitis-C status post treatment in the past Date of Service: Jun 09, 2024 Billing Provider: KOTA JIMENES MD Common Visit Codes: NOT BILLABLE KOTA JIMENES MD Jun 11, 2024 16:24
== END 2024-06-09 19:10 | disposition home or self-care (01) | DRG 432 ==
LOC: EDBD 15:36 → ER 15:46 → TELE 20:10 → CATH ICU 06-07 17:06 → TELE-WESTW 06-08 15:04
PROVIDERS: ADMIT Internal Medicine; ATTEND Internal Medicine
PROC: 30233N1 Transfusion of Nonautologous Red Blood Cells into Peripheral Vein, Percutaneous Approach (ICD-10-PCS; 2024-06-06)
PROC: 06L38CZ Occlusion of Esophageal Vein with Extraluminal Device, Via Natural or Artificial Opening Endoscopic (ICD-10-PCS; principal; 2024-06-07 15:12)
DX: K74.60 Unspecified cirrhosis of liver (principal); G93.41 Metabolic encephalopathy; I85.11 Secondary esophageal varices with bleeding; N17.0 Acute kidney failure with tubular necrosis; R57.1 Hypovolemic shock; R57.8 Other shock; Z68.41 Body mass index [BMI] 40.0-44.9, adult; N39.0 Urinary tract infection, site not specified; D62 Acute posthemorrhagic anemia; R79.1 Abnormal coagulation profile; I10 Essential (primary) hypertension; F10.10 Alcohol abuse, uncomplicated; E66.9 Obesity, unspecified; E86.1 Hypovolemia; Z79.01 Long term (current) use of anticoagulants; Z99.81 Dependence on supplemental oxygen; Y90.9 Presence of alcohol in blood, level not specified
CPT/HCPCS: 36415; 36430; 71045; 74176; 80048; 80053; 80307; 80320; 81001; 82140; 82570; 83735; 84300; 85018; 85025; 85610; 85730; 86850; 86900; 86901; 86920; 87081; 93005; 96361; 96374; 99291; G0378; J0330; J2250; J2405; J2470; J2704; J3430